=== PATIENT | male | born 1960 | race Caucasian/White ===

== ENCOUNTER 2025-05-22 23:27 | Inpatient (IN) | payer MEDICARE, MEDICAID ==
[~2025-05-22] VITALS: Ht 172.7 cm; Wt 71.3 kg
[2025-05-23] VITALS (7 sets, daily range): BP systolic 81–138; BP diastolic 54–90; PULSE 70–99; RESP 16–20; TEMP 36.3–36.6; O2SAT 98–100
[2025-05-23 00:45] LABS: BASOPHILS % 0.2 % (0.0-2.0); EOSINOPHILS % 0.0 % (0.0-5.0); HEMATOCRIT. 45.2 % (42.0-52.0); HEMOGLOBIN. 15.1 g/dL (14.0-18.0); LYMPHOCYTES % 10.4 % (20.0-50.0); MEAN PLATELET VOLUME 6.6 fl (7.4-10.4); MONOCYTES % 13.3 % (2.0-8.0); NEUTROPHILS % 76.1 % (40.0-76.0); PLATELET 454 x1000/uL (130-400); RED BLOOD CELL COUNT 5.24 mill/uL (4.7-6.1); RED CELL DISTRIBUTION WIDTH 13.4 % (11.6-14.6)
[2025-05-23 00:58] LABS: INR 1.2
[2025-05-23 01:05] LABS: CREATININE 1.0 mg/dL (0.6-1.3); UREA NITROGEN BLOOD 18 mg/dL (9-23)
[2025-05-23 01:06] LABS: ETHANOL BLOOD < 10 mg/dL (<10)
[2025-05-23 01:12] LABS: TROPONIN I HIGH SENSITIVITY 58 ng/L (3.0-53)
[2025-05-23] MEDS ORDERED: CLONIDINE 0.1MG TABLET PO PRN (03:15)
[2025-05-23] MEDS ORDERED: MAGNESIUM/ALUMINUM HYDROXIDE/SIMETHICONE 30ML UDC PO PRN (03:15)
[2025-05-23] MEDS ORDERED: DOCUSATE SODIUM 100MG CAPSULE PO PRN (03:15)
[2025-05-23] MEDS ORDERED: GUAIFENESIN 200MG/10ML SUGAR FREE UDC PO PRN (03:15)
[2025-05-23] MEDS ORDERED: IPRATROPIUM/ALBUTEROL 0.5-3(2.5)MG/3ML NEB HHN PRN (03:15)
[2025-05-23] MEDS ORDERED: ONDANSETRON HCL 4MG/2ML INJ IV PRN (03:15)
[2025-05-23] MEDS ORDERED: ACETAMINOPHEN 325MG TABLET PO PRN (03:15)
[2025-05-23] MEDS: ASPIRIN 325MG EC TABLET PO ONE (03:16)
[2025-05-23] MEDS: PIPERACILLIN/TAZO 3.375G/50ML 50 ML IV SCH (06:34)
[2025-05-23] MEDS ORDERED: FURO40TA5 PO (06:47)
[2025-05-23] MEDS ORDERED: CLOP75TA33 PO (06:47)
[2025-05-23] MEDS ORDERED: CARV3.1242 PO (06:47)
[2025-05-23] MEDS ORDERED: LOSA25TA26 PO (06:47)
[2025-05-23] MEDS ORDERED: ATOR40TA70 PO (06:47)
[2025-05-23] MEDS: SODIUM CHLORIDE 0.9% 250 ML IV ONE (06:52)
[2025-05-23] MEDS ORDERED: ASPIRIN 81MG EC TABLET PO SCH (09:00)
[2025-05-23] MEDS: CARVEDILOL 3.125 MG TABLET PO SCH (09:09)
[2025-05-23] MEDS: ENOXAPARIN 40MG/0.4ML SYR SUBCUT SCH (09:09)
[2025-05-23] MEDS: CLOPIDOGREL 75MG TABLET PO SCH (09:09)
[2025-05-23] MEDS: FUROSEMIDE 40MG TABLET PO SCH (09:10)
[2025-05-23] MEDS: LOSARTAN 25 MG TABLET PO SCH (09:10)
[2025-05-23] MEDS: THIAMINE HCL 100MG TABLET PO SCH (09:15)
[2025-05-23 11:15] LABS: CREATININE 0.9 mg/dL (0.6-1.3); UREA NITROGEN BLOOD 17 mg/dL (9-23)
[2025-05-23 11:21] LABS: TROPONIN I HIGH SENSITIVITY 58 ng/L (3.0-53)
[2025-05-23 12:20] LABS: CLARITY URINE CLOUDY (CLEAR); COLOR URINE ORANGE (YELLOW); GLUCOSE URINE NEGATIVE (NEGATIVE); KETONES URINE 1+ (NEGATIVE); LEUKOCYTE ESTERASE URINE TRACE (NEGATIVE); NITRITE URINE NEGATIVE (NEGATIVE); OCCULT BLOOD URINE NEGATIVE (NEGATIVE); PH URINE 5.5 (4.5-8.0); PROTEIN URINE 1+ (NEGATIVE); SPECIFIC GRAVITY URINE 1.031 (1.005-1.030); UROBILINOGEN URINE 1.0 E.U./dL (0.2-1.0)
[2025-05-23 12:51] LABS: BACTERIA URINE 1+; RBC URINE NONE SEEN /hpf (0-2); SQUAMOUS EPITHELIAL CELL URINE NONE SEEN /lpf (RARE/1+); YEAST URINE NONE SEEN
[2025-05-23 13:10] LABS: *AMPHETAMINES SCREEN URINE PRESUMPTIVE POSITIVE (NEGATIVE); *BARBITURATES SCREEN URINE NEGATIVE (NEGATIVE); *BENZODIAZEPINES SCREEN URINE PRESUMPTIVE POSITIVE (NEGATIVE); *COCAINE SCREEN URINE NEGATIVE (NEGATIVE); CANNABINOID URINE SCREEN PRESUMPTIVE POSITIVE (NEGATIVE); ECSTASY MDMA SCREEN URINE NEGATIVE (NEGATIVE); METHADONE URINE SCREEN NEGATIVE (NEGATIVE); OPIATES URINE SCREEN NEGATIVE (NEGATIVE); PHENCYCLIDINE URINE SCREEN NEGATIVE (NEGATIVE)
[2025-05-23] MEDS ORDERED: KETOROLAC 10MG TABLET PO PRN (14:30)
[2025-05-23] MEDS: LIDOCAINE 5% PATCH TOP SCH (14:31)
[2025-05-23 17:26] LABS: TROPONIN I HIGH SENSITIVITY 44.0 ng/L (3.0-53)
[2025-05-23 17:30] LABS: T4 FREE 1.45 ng/dL (0.89-1.76)
[2025-05-23 17:57] LABS: FOLIC ACID (FOLATE) SERUM > 20.00 ng/mL (>5.38)
[2025-05-23 18:04] LABS: VITAMIN B12 SERUM 499 pg/mL (211-911)
[2025-05-23] MEDS: ACETAMINOPHEN 325MG TABLET PO PRN (21:55)
[2025-05-23] MEDS: ATORVASTATIN CALCIUM 40MG TABLET PO SCH (21:55)
[2025-05-24] VITALS: BP 99/67; PULSE 66; RESP 18; TEMP 36.2; O2SAT 97
[2025-05-24 04:00] VITALS: BP 115/74; PULSE 60; RESP 16; TEMP 36.4; O2SAT 100
[2025-05-24 07:38] LABS: BASOPHILS % 0.7 % (0.0-2.0); EOSINOPHILS % 2.0 % (0.0-5.0); HEMATOCRIT. 44.2 % (42.0-52.0); HEMOGLOBIN. 14.8 g/dL (14.0-18.0); LYMPHOCYTES % 21.9 % (20.0-50.0); MEAN PLATELET VOLUME 7.0 fl (7.4-10.4); MONOCYTES % 10.5 % (2.0-8.0); NEUTROPHILS % 64.9 % (40.0-76.0); PLATELET 324 x1000/uL (130-400); RED BLOOD CELL COUNT 5.03 mill/uL (4.7-6.1); RED CELL DISTRIBUTION WIDTH 13.4 % (11.6-14.6)
[2025-05-24 07:55] LABS: CREATININE 0.8 mg/dL (0.6-1.3); TRIGLYCERIDE 71 mg/dL (0-150); UREA NITROGEN BLOOD 21 mg/dL (9-23)
[2025-05-24 07:56] LABS: LDL CHOLESTEROL 88 mg/dL (5-100)
[2025-05-24 07:57] LABS: PHOSPHORUS 2.8 mg/dL (2.5-4.9)
[2025-05-24 07:58] LABS: T4 FREE 1.28 ng/dL (0.89-1.76)
[2025-05-24 08:00] VITALS: BP 108/82; PULSE 60; RESP 20; TEMP 36.1; O2SAT 100
[2025-05-24 12:00] VITALS: BP_SYST 112; BP_SYST 90; BP_SYST 93; BP_DIAS 65; BP_DIAS 70; BP_DIAS 86; PULSE 70; RESP 18; TEMP 36; O2SAT 100
[2025-05-24 16:00] VITALS: BP 120/77; PULSE 78; RESP 20; TEMP 36.1; O2SAT 99
[2025-05-24] MEDS: MAGNESIUM 2 G PREMIX 50 ML IV SCH (16:25)
[2025-05-24] MEDS ORDERED: IPRATROPIUM/ALBUTEROL 0.5-3(2.5)MG/3ML NEB HHN SCH (18:00)
[2025-05-24 20:00] VITALS: BP 104/73; PULSE 69; RESP 19; TEMP 36.8; O2SAT 97
[2025-05-24] MEDS ORDERED: SODIUM CHLORIDE 3% FOR INH 4ML NEB INH SCH (20:00)
[2025-05-25] VITALS: BP 117/72; PULSE 73; RESP 18; TEMP 36.6; O2SAT 98
[2025-05-25 04:00] VITALS: BP 122/85; PULSE 69; RESP 18; RESP 69; TEMP 36.4; O2SAT 97
[2025-05-25 07:56] VITALS: BP 133/70; PULSE 65; RESP 19; TEMP 36.6; O2SAT 99
[2025-05-25 08:09] LABS: PLATELET 383 x1000/uL (130-400); RED BLOOD CELL COUNT 4.81 mill/uL (4.7-6.1); RED CELL DISTRIBUTION WIDTH 13.5 % (11.6-14.6)
[2025-05-25 08:58] LABS: CREATININE 0.8 mg/dL (0.6-1.3)
[2025-05-25 08:59] LABS: UREA NITROGEN BLOOD 17 mg/dL (9-23)
[2025-05-25 09:01] LABS: PHOSPHORUS 3.3 mg/dL (2.5-4.9)
[2025-05-25] MEDS ORDERED: NITR-87 MT (09:27)
[2025-05-25] MEDS ORDERED: KETO15VI22 PO (09:27)
[2025-05-25 11:47] VITALS: BP 102/52; PULSE 66; RESP 18; TEMP 36.4; O2SAT 98
[2025-05-25 11:58] VITALS: BP 102/52; PULSE 66; TEMP 97.5; O2SAT 98
[2025-05-25] MEDS ORDERED: KETO10TA2 PO (13:03)
[2025-05-25] MEDS ORDERED: CARV3.1242 PO (13:13)
== END 2025-05-25 13:40 | disposition home or self-care (01) | DRG 917 ==
LOC: ER 23:27 → 7WST 05-23 03:00 → EDBEDREQDT 05-23 03:10 → EDBEDREQTM 05-23 03:10 → EDBEDREQ 05-23 03:10
PROVIDERS: ADMIT Internal Medicine; ATTEND Internal Medicine
DX: T43.651A Poisoning by methamphetamines accidental (unintentional), initial encounter (principal); G92.8 Other toxic encephalopathy; I21.A1 Myocardial infarction type 2; J69.0 Pneumonitis due to inhalation of food and vomit; N39.0 Urinary tract infection, site not specified; I50.22 Chronic systolic (congestive) heart failure; I69.354 Hemiplegia and hemiparesis following cerebral infarction affecting left non-dominant side; E78.5 Hyperlipidemia, unspecified; I11.0 Hypertensive heart disease with heart failure; D72.829 Elevated white blood cell count, unspecified; D75.839 Thrombocytosis, unspecified; F10.129 Alcohol abuse with intoxication, unspecified; F15.10 Other stimulant abuse, uncomplicated; F17.200 Nicotine dependence, unspecified, uncomplicated; Z85.819 Personal history of malignant neoplasm of unspecified site of lip, oral cavity, and pharynx; Z87.01 Personal history of pneumonia (recurrent); Z79.02 Long term (current) use of antithrombotics/antiplatelets; Z79.899 Other long term (current) drug therapy; Z93.1 Gastrostomy status; Y92.89 Other specified places as the place of occurrence of the external cause
CPT/HCPCS: 36415; 71045; 73030; 80048; 80061; 80305; 80320; 81003; 82140; 82550; 82607; 82746; 83036; 83735; 83880; 84100; 84145; 84439; 84443; 84484; 85025; 85027; 93005; 93970; 97162; 97166; 97535; 99285; J1650; J2543; J3475; G0480